=== PATIENT | female | born 1975 | race Caucasian/White ===

== ENCOUNTER 2024-10-21 21:37 | Emergency (ER) | payer MEDICAID ==
[~2024-10-21] VITALS: Ht 157.5 cm; Wt 75.0 kg
[2024-10-21 21:43] VITALS: BP 192/80; PULSE 82; RESP 16; TEMP 36.7; O2SAT 99
== END 2024-10-21 22:30 | disposition left against medical advice (07) ==
LOC: ER 21:37
DX: F12.90 Cannabis use, unspecified, uncomplicated (principal); R42 Dizziness and giddiness; I10 Essential (primary) hypertension; Z98.890 Other specified postprocedural states
CPT/HCPCS: 99283